=== PATIENT | female | born 1965 | race Caucasian/White ===

== ENCOUNTER 2016-05-28 11:09 | Emergency (ER) | payer OTHER ==
[~2016-05-28] VITALS: Ht 157.5 cm; Wt 63.5 kg
[2016-05-28 11:47] VITALS: Ht 157.5 cm; Wt 63.5 kg
[2016-05-28] MEDS ORDERED: IPRATROPIUM (NEB) 0.5 MG/2.5 ML AMP NEB STA (12:59)
[2016-05-28] MEDS ORDERED: predniSONE 20 MG TAB PO STA (12:59)
[2016-05-28] MEDS ORDERED: ALBUTEROL 0.083% (NEB) 2.5 MG/3 ML AMP NEB STA (12:59)
[2016-05-28] MEDS ORDERED: IBUPROFEN 600 MG TAB PO ONE (13:00)
--- NOTE | 2016-05-28 13:04 | ERD ---
ER Documentation Chief Complaint Date/Time DATE: 05/28/16 TIME: 13:01 Chief Complaint has asthma exascerbation and upper resp infection symptoms HPI This is a very pleasant 51-year-old female with a known history of asthma. The patient indicates that for the past 24 hours she has had nasal congestion, nonproductive cough, dyspnea and a bandlike headache. She also indicates she has had a tactile fever with no shaking or chills. She did not take any antipyretics prior to arrival. She attempted to utilize her pro-air inhaler but realized it had and therefore did not have any bronchodilators prior to arrival. She never required intubation in the past for asthma nor has she been admitted to the hospital the past year for an asthma attack. She indicates she utilizes her inhaler on an as-needed basis which is roughly once a month. She denies any recent travel or prolonged immobilization. She has no chest pain or pressure that radiates to the neck arm back or jaw. She has no shortness of breath at rest or exertion ROS All systems reviewed and are negative except as per history of present illness. Allergies Allergies: Coded Allergies: No Known Allergy (Unverified , 05/28/16) PMhx/Soc Medical and Surgical Hx: pt denies Medical Hx, pt denies Surgical Hx Hx Alcohol Use: No Hx Substance Use: No Hx Tobacco Use: No Smoking Status: Never smoker Physical Exam Vitals Vital Signs Date Time Temp Pulse Resp B/P Pulse Ox O2 Delivery O2 Flow Rate FiO2 05/28/16 11:47 100.4 100 18 163/90 100 Physical Exam Constitutional:Well-developed. Well-nourished. HEENT:Normocephalic. Atraumatic.Pupils were equal round reactive to light. Moist mucous membranes.No tonsillar exudates. Transparent rhinorrhea. Tenderness over the frontal maxillary sinuses with bogginess to the nasal mucosa. Neck: No nuchal rigidity. No lymphadenopathy. No posterior cervical spine tenderness or step-offs. Respiratory: Not using accessory muscles of respiration.Lungs were clear to auscultation bilaterally. No rhonchi. No rales. Wheezing on end auscultation bilaterally peer Cardiovascular: Regular rate regular rhythm.No murmurs. No rubs were appreciated.S1, S2 normal. Distal pulses are palpable 2+ bilaterally. GI: Abdomen was soft. Nontender. Non Distended. No pulsatile abdominal masses or bruits. No rebound. No guarding. Bowel sounds were present and normal. NEURO: Patient was alert, awake, orientated x3.No facial droop. Gait observed and normal with no ataxia.Speech had regular rate and rhythm. No focal neurological deficits. Procedures/MDM This patient presented to the emergency department physical exam findings consistent with a mild asthma exacerbation and acute sinusitis. I did feel the patient cephalgia was result of his sinus headache and tension headache. The patient had mild elevation of her blood pressure in the emergency department with no history of hypertension and no signs of endorgan damage to suggest hypertensive emergency or urgency. She had a low-grade fever of 100.4 and was given Motrin. To improve the patient's hypertension she received clonidine in the emergency department and was instructed to follow-up on an outpatient basis for further evaluation into her hypertension which I did feel could be exacerbated by her asthma exacerbation an infectious process of sinusitis. To treat the patient asthma in the emergency department she received oral prednisone and bronchodilators with anticholinergics and complete resolution of her wheezing. The patient was discharged home in fair condition. They were instructed to return to the emergency department at any time if there was any worsening of their condition. The patient stated they would follow up with their PCP in the next 24-48 hours to initiate a suitable medication regimen under the care of their PCP as well as to allow their PCP to monitor any drug reactions. The patient was discharged home with prescriptions after they gave informed consent to the new medication. They were also fully informed by myself on the adverse effects and adverse drug interactions in order to provide adequate safeguards to prevent possible adverse reactions to medications. Departure Diagnosis: Primary Impression: Sinusitis, acute Sinusitis location: frontal Recurrence: non-recurrent Qualified Code: J01.10 - Acute non-recurrent frontal sinusitis Additional Impression: Asthma attack Condition: Fair JAJA GRUBBS May 28, 2016 13:04
[2016-05-28] MEDS ORDERED: ALBU8.5H3 INH (13:06)
[2016-05-28] MEDS ORDERED: PRED20TA PO (13:06)
[2016-05-28] MEDS ORDERED: AMO500 PO (13:06)
[2016-05-28 14:11] VITALS: BP 150/84; PULSE 80; RESP 20; TEMP 98.9
== END 2016-05-28 14:13 | disposition home or self-care (01) ==
LOC: FTE 11:09
DX: J01.10 Acute frontal sinusitis, unspecified (principal); J45.901 Unspecified asthma with (acute) exacerbation
CPT/HCPCS: 94664; J7512; Z7610